=== PATIENT | male | born 1950 | race Caucasian/White ===

== ENCOUNTER → 2018-01-23 | Outpatient (CLI) | payer MEDICARE, OTHER | LOC: M.RAD 11:03 | DX: J15.8 Pneumonia due to other specified bacteria (principal); J45.21 Mild intermittent asthma with (acute) exacerbation; J45.998 Other asthma ==

== ENCOUNTER → 2019-05-18 | Outpatient (CLI) | payer MEDICARE, OTHER ==
--- NOTE | 2019-05-19 16:38 | EXE ---
[place] [address] STRESS ECHOCARDIOGRAM Name: VAL CEDENO Room: [facility]#: [id number] Admission: 05/18/19 Attend Phys: Jose Mayers, Discharge: Date of : 46 Date of Service: 05/19/19 1638 Report #: [id number] THIS REPORT FOR: //name// APPROVED REPORT Study performed: 05/18/2019 15:23:46 Exam: Stress Echocardiogram Indication: Chest pain Patient Location: Out-Patient Stress Nurse: Francine Mohan RN Supervising Physician: Igor Bhardwaj MD Ht: 5 ft 8 in HR: 61 bpm BP: 144/80 mmHg Medical History Medications: Lisinopril Cardiac Risk Factors: HTN, FHX of CAD Procedure The patient underwent an Exercise Stress Test using the Darinel Protocol. Blood pressure, heart rate, and EKG were monitored. An Echocardiogram was performed by engineering technician parking in four stages in quad fashion. At peak stress, four selected images were obtained and placed side by side with resting images for comparison. Stress Test Details Stress Test: Exercise stress testing was performed using a Darinel protocol. HR Resting HR: 61 bpm Max Heart Rate (APMHR): 150 bpm Max HR Achieved: 138 bpm Target HR (85% APMHR): 127 bpm % of APMHR: 92 Recovery HR: 87 bpm HR response to stress: Normal HR response to stress BP Resting BP: 144/80 mmHg Max BP: 171/69 mmHg Recovery BP: 164/65 mmHg BP response to stress: Normal blood pressure response to stress. ECG Resting ECG: Sinus Rhythm [address] [address] STRESS ECHOCARDIOGRAM Name: VAL CEDENO Room: [facility]#: [id number] Admission: 05/18/19 Attend Phys: Jose Mayers, Discharge: Date of : 46 Date of Service: 05/19/19 1638 Report #: [id number] Stress ECG: Sinus Tachycardia ST Change: Upsloping ST depression Maximum ST Deviation: 0.5 mm Arrhythmia: None Recovery ECG: Sinus Rhythm Recovery ST Change: Upsloping ST depression Recovery ST Deviation: 0.5 mm Recovery Arrhythmia: None Clinical Reason for Termination: Maximal effort Exercise duration: 8 min 13 sec Highest Stage Achieved: Stage 3: 3.4 mph at 14% grade. Exercise capacity: 10.16 METs Overall Exercise Capacity for Age: Normal Functional Aerobic Impairment 92% The patient tolerated standard Darinel protocol exercise without significant symptoms. Stress ECG Conclusion The baseline 12-lead EKG shows sinus rhythm without significant ST segment abnormality. EKGs during and post exercise stress show sinus tachycardia and sinus rhythm with 0.[address] segment depression that does not meet criteria for ischemia. Pre-Stress Echo The resting Echocardiogram showed normal left ventricular contractility with an estimated Ejection Fraction of about 60-65%. At rest there is normal left ventricular systolic contractility with normal wall motion in all segments visualized. Post-Stress Echo The stress Echocardiogram showed normal left ventricular contractility with an estimated Ejection Fraction of about >70%. Post stress images show normal augmentation in left ventricular systolic function with exercise stress. There was no evidence of stress-induced wall motion abnormality compared to baseline. Conclusion Clinical Response: Non-ischemic Exercise Capacity: Average Stress ECG Response: Non-ischemic Stress Echo Images: [place] [address] STRESS ECHOCARDIOGRAM Name: VAL CEDENO Room: [facility]#: [id number] Admission: 05/18/19 Attend Phys: Jose Mayers, Discharge: Date of : 46 Date of Service: 05/19/191637 Report #: [id number] Other Information Study Quality: Fair <ELECTRONICALLY SIGNED> By: Manpreet Aggarwal MD, FACC 05/19/191637 37 37 Manpreet Aggarwal MD, FACC /INF
== END ==
LOC: M.CRD 14:59
DX: R07.89 Other chest pain (principal); Z79.899 Other long term (current) drug therapy; Z88.8 Allergy status to other drugs, medicaments and biological substances